=== PATIENT | female | born 1930 | race Caucasian/White ===

== ENCOUNTER 2016-10-31 10:57 | Emergency (ER) | payer MEDICARE, OTHER ==
--- NOTE | 2016-10-31 11:46 | EDM.PDOC ---
ED HPI GENERAL MEDICAL PROBLEM - General Chief Complaint: General Stated Complaint: CAME FROM CLINIC Time Seen by Provider: 10/31/16 11:25 Source of Information: Reports: Patient, Family, Provider History Limitations: Reports: No Limitations - History of Present Illness INITIAL COMMENTS - FREE TEXT/NARRATIVE: 86-year-old female with multiple myeloma has been experiencing progressive weakness over the past several days, her persistent cough and nasal congestion and fatigue. No fevers or chills, denies shortness of breath. Denies nausea or vomiting or pain. She was seen a week ago and had elevated creatinine and decreasing hemoglobin, came into the clinic today to be rechecked and looks so ill that she was sent to the emergency room. Onset: Unknown/Unsure Severity: Moderate Associated Symptoms: Reports: Cough, Malaise, Weakness, Other (persistent nasal congestion and cough). Denies: Fever/Chills, Headaches - Related Data Allergies Allergy/AdvReac Type Severity Reaction Status Date / Time vicryl Allergy Other Uncoded 12/10/15 01:45 Home Meds: Home Meds Cholecalciferol (Vitamin D3) [Vitamin D3] 5,000 unit PO DAILY 08/10/15 [History] Metoprolol Succinate [Toprol XL] 25 mg PO BID 08/10/15 [History] Simvastatin [Zocor] 10 mg PO BEDTIME 08/10/15 [History] amLODIPine Besylate [Norvasc] 2.5 mg PO BID 08/10/15 [History] Multivitamin with Minerals [Multiple Vitamin] 1 tab PO DAILY 08/11/15 [History] Aspirin [Adult Low Dose Aspirin EC] 81 mg PO DAILY 12/10/15 [History] Lenalidomide [Revlimid] 10 mg PO ASDIRECTED 12/10/15 [History] predniSONE [predniSONE] 1 dose PO ASDIRECTED 10/31/16 [History] Past Medical History HEENT History: Reports: Cataract, Impaired Vision Cardiovascular History: Reports: Arrhythmia, High Cholesterol, Hypertension Gastrointestinal History: Reports: Diverticulosis Genitourinary History: Reports: Chronic Renal Insuffiency Other Genitourinary History: CKD stage 3 Musculoskeletal History: Reports: Back Pain, Chronic, Osteoarthritis Endocrine/Metabolic History: Reports: Osteopenia, Vitamin D Deficiency Oncologic (Cancer) History: Reports: Basal Cell Carcinoma, Renal, Other (See Below) Other Oncologic History: multiple myeloma Dermatologic History: Reports: Other (See Below) Other Dermatologic History: Leukocytoclastic vasculitis - Infectious Disease History Infectious Disease History: Reports: Chicken Pox - Past Surgical History Oncologic Surgical History: Reports: Other (See Below) Other Oncologic Surgeries/Procedures: kidney removed Social & Family History - Family History Family Medical History: Unobtainable - Tobacco Use Smoking Status *Q: Never Smoker Second Hand Smoke Exposure: Yes - Caffeine Use Caffeine Use: Reports: Coffee - Recreational Drug Use Recreational Drug Use: No ED ROS GENERAL - Review of Systems Review Of Systems: See Below Constitutional: Reports: Malaise, Weakness, Decreased Appetite. Denies: Fever, Chills HEENT: Reports: Sinus Problem (persistent nasal congestion) Respiratory: Reports: Cough, Sputum. Denies: Shortness of Breath Cardiovascular: Denies: Chest Pain GI/Abdominal: Denies: Abdominal Pain, Nausea, Vomiting : Reports: No Symptoms Skin: Reports: Other (widespread improving vasculitis, purpura and petechia especially on the extremities) ED EXAM, GENERAL - Physical Exam Exam: See Below Exam Limited By: No Limitations General Appearance: Alert, No Apparent Distress (patient is not distressed but appears very tired and weak.) Throat/Mouth: Normal Inspection (normal hydration) Head: Atraumatic Respiratory/Chest: No Respiratory Distress, Decreased Breath Sounds (decreased breath sounds at the right base with a few rales bilaterally) Cardiovascular: Regular Rate, Rhythm GI/Abdominal: Soft, Non-Tender Extremities: Other (widespread petechia and purpura of the lower extremities, 1 + symmetric pitting edema) Neurological: Alert, Slow to Respond (very fatigued and weak) Skin Exam: Warm Course - Vital Signs Last Recorded V/S: Last Vital Signs Temp 96.4 F 10/31/16 11:53 Pulse 78 10/31/16 13:40 Resp 16 10/31/16 13:40 BP 159/81 H 10/31/16 13:40 Pulse Ox 96 10/31/16 13:40 - Orders/Labs/Meds Labs: Laboratory Tests 10/31/16 10/31/16 10/31/16 Range/Units 11:50 11:50 11:50 WBC 2.2 L (4.5-11.0) K/uL RBC 2.41 L (3.30-5.50) M/uL Hgb 7.6 L D (12.0-15.0) g/dL Hct 22.6 L (36.0-48.0) % MCV 94 (80-98) fL MCH 32 H (27-31) pg MCHC 34 (32-36) % Plt Count 175 (150-400) K/uL Add Manual Diff Yes Neutrophils % (Manual) 64 (36-66) % Band Neutrophils % 14 H (5-11) % Lymphocytes % (Manual) 12 L (24-44) % Monocytes % (Manual) 10 H (2-6) % Sodium 132 L (140-148) mmol/L Potassium 5.1 (3.6-5.2) mmol/L Chloride 99 L (100-108) mmol/L Carbon Dioxide 20 L (21-32) mmol/L Anion Gap 18.1 H (5.0-14.0) mmol/L BUN 110 H* D (7-18) mg/dL Creatinine 4.3 H* D (0.6-1.0) mg/dL Est Cr Clr Drug Dosing 8.63 mL/min Estimated GFR (MDRD) 10 L (>60) Glucose 139 H (74-106) mg/dL Calcium 8.1 L (8.5-10.1) mg/dL Lactate Dehydrogenase 219 (82-234) U/L - Re-Assessments/Exams Free Text/Narrative Re-Assessment/Exam: 10/31/16 12:29 CBC, CMP and LDH were obtained. LDH was normal but creatinine is now 4.3, GFR 10 and BUN 110. 1 view chest x-ray did not show any infiltrate or effusion on the right side and she remained stable. Dr. Olmstead of the hospitalist service will assess the patient to see if admission to our hospital is reasonable. Departure - Departure Time of Disposition: 13:53 Disposition: DC/Tfer to Acute Hospital 02 Condition: Poor Clinical Impression: Multiple myeloma Renal failure (ARF), acute on chronic Qualifiers: Acute renal failure type: unspecified Chronic kidney disease stage: unspecified stage Qualified Code(s): N17.9 - Acute kidney failure, unspecified; N18.9 - Chronic kidney disease, unspecified Anemia Qualifiers: Anemia type: due to chronic kidney disease - Discharge Information Referrals: Lotus Maharaj PA [Primary Care Provider] - Forms: ED Department Discharge Care Plan Goals: Patient will be transferred to [facility] for inpatient evaluation and care.
--- NOTE | 2016-10-31 13:20 | CR ---
Heart size mildly enlarged. Airspace disease within the right midlung zone peripherally and right baljinder g base. Findings can indicate infiltrate. Blunting of the left costophrenic angle can indicate minima l pleural effusion. Atelectasis versus infiltrate medial left lung base.. Sclerotic focus within the left proximal humerus was evident on prior. If symptomatic recommend dedicated views. Correlate with PSA.
[2016-10-31 13:55] VITALS: BP 159/81
== END 2016-10-31 14:07 ==
LOC: JP.ED 10:57
DX: C90.00 Multiple myeloma not having achieved remission (principal); I12.9 Hypertensive chronic kidney disease with stage 1 through stage 4 chronic kidney disease, or unspecified chronic kidney disease; D63.1 Anemia in chronic kidney disease; N18.9 Chronic kidney disease, unspecified; N17.9 Acute kidney failure, unspecified; Z88.8 Allergy status to other drugs, medicaments and biological substances; Z79.899 Other long term (current) drug therapy; Z79.82 Long term (current) use of aspirin; E78.00 Pure hypercholesterolemia, unspecified; M19.90 Unspecified osteoarthritis, unspecified site; Z85.828 Personal history of other malignant neoplasm of skin; Z85.528 Personal history of other malignant neoplasm of kidney
CPT/HCPCS: 36415; 71010; 71010-26; 80048; 83615; 85025; 99285